=== PATIENT | male | born 1995 | race Caucasian/White ===

== ENCOUNTER 2017-09-11 09:16 | Emergency (ER) ==
[2017-09-11 09:20] VITALS: BP 125/89; TEMP 98.2; BMI 20.6
--- NOTE | 2017-09-11 09:44 | ED.PDOC ---
General ED Provider: Dr. RAMONA FIELDS Chief Complaint: Sore Throat Stated Complaint: Sore throat and temperature elevation. Mother accompanies her son and states he's been sick for several days with elevated temperature. States has been giving him antipyretics with some improvement but she noted white patches on his tonsils which were reddened. In addition has had a productive cough of greenish colored sputum. Has given him mucinex. Time Seen by Physician: 09:35 Mode of Arrival: Walk-In Information Source: Patient, Family Exam Limitations: No limitations Referred to ED by: Other (his mother ) Nursing and Triage Documentation Reviewed and Agree: Yes Reviewed sepsis parameters & appropriate labs ordered?: Yes System Inflammatory Response Syndrome: Not Applicable Sepsis Protocol: For patient's 13 years and over: Temp is 96.8 and below OR 101 and greater Pulse >90 BPM Resp >20/minute Acutely Altered Mental Status Are patient's symptoms suggestive of a new infection, such as: -Pneumonia -Skin, Soft Tissue -Endocarditis -UTI -Bone, Joint Infection -Implantable Device -Acute Abdominal Infection -Wound Infection -Meningitis -Blood Stream Catheter Infection -Unknown System Inflammatory Response Syndrome: Not Applicable Review of Systems - Review Of Systems Constitutional: Reports: Fever, Weakness, Loss of appetite, Other (aching) Eyes: Reports: No symptoms Ears, Nose, Mouth, Throat: Reports: No symptoms, Throat pain, Throat swelling Respiratory: Reports: Cough, Other (productive of green sputum) Cardiac: Reports: No symptoms GI: Reports: No symptoms : Reports: No symptoms Musculoskeletal: Reports: No symptoms Skin: Reports: No symptoms Neurological: Reports: No symptoms Endocrine: Reports: No symptoms Hematologic/Lymphatic: Reports: No symptoms All Other Systems: Reviewed and Negative Past Medical History - Past Medical History Previously Healthy: Yes Endocrine: Reports: None Cardiovascular: Reports: None Respiratory: Reports: Other (previous strep throat) Hematological: Reports: None Gastrointestinal: Reports: None Genitourinary: Reports: None Neuro/Psych: Reports: None Musculoskeletal: Reports: None Cancer: Reports: None - Surgical History General Surgical History: Reports: None - Family History Family History: Reports: None - Social History Smoking Status: Current every day smoker, Heavy tobacco smoker Hx Substance Use: No Alcohol Screening: Occasionally - Immunizations Tetanus Shot up to Date: Yes Physical Exam - Physical Exam Appearance: Well-appearing, No pain distress, Well-nourished Ill-appearing: Mild Pain Distress: None Eyes: VIOLETA, EOMI, Conjunctiva clear ENT: Ears normal, Nose normal, Erythema, Exudate (tonisls reddened) Respiratory: Airway patent, Breath sounds clear, Breath sounds equal, Respirations nonlabored Cardiovascular: RRR, Pulses normal, No rub, No murmur GI/: Soft, Nontender, No masses, Bowel sounds normal, No Organomegaly Musculoskeletal: Normal strength, ROM intact, No edema, No calf tenderness Skin: Warm, Dry, Normal color Neurological: Sensation intact, Motor intact, Reflexes intact, Cranial nerves intact, Alert, Oriented Psychiatric: Affect appropriate, Mood appropriate Re-Evaluation - Re-Evaluation Time of Re-Evaluation: 11:40 Status: Improved Vital Signs Stable: Yes Appearance: NAD Lungs: Clear Skin: Warm and Dry Neuro: Alert and Oriented X3 CV: RRR Additional Comments: Explained results of testing to patient and mother Critical Care Note - Critical Care Note Total Time (mins): 60 Course - Course Hematology/Chemistry: 09/11/17 10:55 Vital Signs: Temp Pulse Resp BP Pulse Ox 09/11/17 09:16 98.2 F 79 18 125/89 98 Departure - Departure Time of Disposition: 11:45 Disposition: HOME SELF-CARE Discharge Problem: Acute tonsillitis Condition: Good Pt referred to PMD for follow-up: Yes (1 week) IPMP verified?: No Additional Instructions: Take meds as directed Take Tylenol or advil for temperature above 101 def F or for pain F/U PCP in 7-10 days Additional test results prob available by then Prescriptions: Azithromycin [Zithromax] 250 mg PO DAILY #6 tablet Allergies/Adverse Reactions: Allergies No Known Allergies Allergy (Verified 09/11/17 09:20) Home Medications: Ambulatory Orders Azithromycin [Zithromax] 250 mg PO DAILY #6 tablet 09/11/17
== END 2017-09-11 11:58 | disposition home or self-care (01) ==
LOC: ED 09:16
DX: J03.90 Acute tonsillitis, unspecified (principal)
CPT/HCPCS: 36415; 85025; 86308; 87070; 87502; 87651; 99283

== ENCOUNTER 2019-01-19 13:05 | Emergency (ER) ==
[2019-01-19 13:09] VITALS: BP 160/94; TEMP 98; BMI 24.0
[2019-01-19] MEDS ORDERED: DUONEB NEB STA (13:22)
[2019-01-19] MEDS ORDERED: SODIUM CHLORIDE 1,000 ML IV STA (13:22)
[2019-01-19] MEDS ORDERED: ZOFRAN 4 MG/2 ML IVP STA (13:22)
--- NOTE | 2019-01-19 14:33 | ED.PDOC ---
General ED Provider: Dr. RAMONA BRADEN-ER Chief Complaint: Shortness of Air Stated Complaint: humberto been sob and i stop vaping Time Seen by Physician: 13:10 Mode of Arrival: Walk-In Information Source: Patient Exam Limitations: No limitations Nursing and Triage Documentation Reviewed and Agree: Yes Does patient meet sepsis criteria?: No System Inflammatory Response Syndrome: Not Applicable Sepsis Protocol: For patient's 13 years and over: Temp is 96.8 and below OR 101 and greater Pulse >90 BPM Resp >20/minute Acutely Altered Mental Status Are patient's symptoms suggestive of a new infection, such as: -Pneumonia -Skin, Soft Tissue -Endocarditis -UTI -Bone, Joint Infection -Implantable Device -Acute Abdominal Infection -Wound Infection -Meningitis -Blood Stream Catheter Infection -Unknown Respiratory Complaint Exam - Respiratory Complaint/Exam Onset/Duration: several days Symptoms Are: Still present Initial Severity: Mild Current Severity: Mild Location: Chest Character: Reports: Non-productive cough Alleviating: Reports: Spontaneous resolution Associated Signs and Symptoms: Denies: Rapid breathing, Dyspnea, Fever, Chills, Chest pain, Pleuritic chest pain, Wheezing, Hemoptysis, Dizziness, Calf pain, Calf swelling, Edema, URI, Nasal congestion, Hoarseness, Sinus discomfort, Vomiting, Sore throat, Weight loss, Decreased oral intake, Increased thirst, Increased appetite, Increased urination Home Oxygen Use: No Recent Stress Test: No Recent Echo/LV Function: No Current Antibiotic Use: No Current Asthma Medication Use: No Respiratory Distress: None Inadequate Respiratory Effort: No Dysphagia Present: No Stridor Present: No JVD Present: No Accessory Muscle Use: No Retractions: Not Present Diminished Breath Sounds: No Sinus Tenderness: None Grunting Respirations: No Kussmaul Respirations: No Differential Diagnoses: Chest Wall Pain, Pneumonia, Bronchitis Non-Traumatic Chest Pain Syncope: EKG Performed Review of Systems - Review Of Systems Constitutional: Reports: No symptoms Eyes: Reports: No symptoms Ears, Nose, Mouth, Throat: Reports: No symptoms Respiratory: Reports: Cough, Short of air Cardiac: Reports: No symptoms GI: Reports: No symptoms : Reports: No symptoms Musculoskeletal: Reports: No symptoms Skin: Reports: No symptoms Neurological: Reports: No symptoms Endocrine: Reports: No symptoms Hematologic/Lymphatic: Reports: No symptoms All Other Systems: Reviewed and Negative Past Medical History - Past Medical History Previously Healthy: Yes Endocrine: Reports: None Cardiovascular: Reports: None Respiratory: Reports: Other (previous strep throat) Hematological: Reports: None Gastrointestinal: Reports: None Genitourinary: Reports: None Neuro/Psych: Reports: None Musculoskeletal: Reports: None Cancer: Reports: None - Surgical History General Surgical History: Reports: None - Family History Family History: Reports: None - Social History Smoking Status: Current every day smoker, Vaping Hx Substance Use: No Alcohol Screening: Occasionally Physical Exam - Physical Exam Appearance: Well-appearing, No pain distress, Well-nourished Eyes: VIOLETA, EOMI, Conjunctiva clear ENT: Ears normal, Nose normal, Oropharynx normal Neck: Supple Respiratory: Airway patent, Breath sounds clear, Breath sounds equal, Respirations nonlabored Cardiovascular: RRR, Pulses normal, No rub, No murmur GI/: Soft Musculoskeletal: Normal strength, ROM intact, No edema, No calf tenderness Skin: Warm, Dry, Normal color Neurological: Sensation intact, Motor intact, Reflexes intact, Cranial nerves intact, Alert, Oriented Psychiatric: Affect appropriate, Mood appropriate Interpretation - Radiology Interpretation Radiology Interpretation By: Radiologist Radiology Results: Negative Exam Interpreted: CT Scan - EKG Interpretation Time of EKG #1: 15:53 Rate: Normal Rhythm: Sinus Ectopy: None [place]: NL ST Segment: Normal Interpretation: nsr Critical Care Note - Critical Care Note Total Time (mins): 0 Course - Course Hematology/Chemistry: 01/19/19 13:34 01/19/19 13:34 Orders, Labs, Meds: Lab Review 01/19/19 01/19/19 01/19/19 13:21 13:25 13:34 WBC 10.27 H RBC 5.62 Hgb 15.4 Hct 45.7 MCV 81.3 MCH 27.4 MCHC 33.7 RDW Coeff of Branden 13.1 Plt Count 215 Immature Gran % (Auto) 0.4 Neut % (Auto) 65.3 Lymph % (Auto) 24.0 [place] % (Auto) 9.5 Eos % (Auto) 0.3 Baso % (Auto) 0.5 Immature Gran # (Auto) 0.0 Neut # (Auto) 6.7 Lymph # (Auto) 2.5 [place] # (Auto) 1.0 Eos # (Auto) 0.0 Baso # (Auto) 0.1 ESR 1 Puncture Site Rrad O2 Saturation 99.0 ABG pH 7.563 H* ABG pCO2 21.3 L ABG pO2 137.0 H ABG HCO3 19.2 L ABG Total CO2 20 L ABG Base Excess -3 L Keagan Test + FiO2 % 21.0 Sodium Potassium Chloride Carbon Dioxide Anion Gap BUN Creatinine Estimated GFR (MDRD) BUN/Creatinine Ratio Glucose Calcium Total Bilirubin AST ALT Alkaline Phosphatase Total Creatine Kinase CK-MB (CK-2) CK-MB (CK-2) % Troponin I NT-Pro-B Natriuret Pep Total Protein Albumin Globulin Albumin/Globulin Ratio Urine Color Urine Clarity Urine pH Ur Specific [place] Urine Protein Urine Glucose (UA) Urine Ketones Urine Blood Urine Nitrite Urine Bilirubin Urine Urobilinogen Ur Leukocyte Esterase Influ A Molecular Assay Negative by naat Influ B Molecular Assay Negative by naat 01/19/19 01/19/19 13:34 13:40 WBC RBC Hgb Hct MCV MCH MCHC RDW Coeff of Branden Plt Count Immature Gran % (Auto) Neut % (Auto) Lymph % (Auto) [place] % (Auto) Eos % (Auto) Baso % (Auto) Immature Gran # (Auto) Neut # (Auto) Lymph # (Auto) [place] # (Auto) Eos # (Auto) Baso # (Auto) ESR Puncture Site O2 Saturation ABG pH ABG pCO2 ABG pO2 ABG HCO3 ABG Total CO2 ABG Base Excess [place] Test FiO2 % Sodium 140.5 Potassium 3.66 Chloride 107.3 H Carbon Dioxide 23.4 Anion Gap 13.46 BUN 10.1 Creatinine 1.00 Estimated GFR (MDRD) 93.00 BUN/Creatinine Ratio 10.10 Glucose 104.7 Calcium 10.09 Total Bilirubin 0.82 AST 26.6 ALT 21.7 Alkaline Phosphatase 70.0 Total Creatine Kinase 151.8 CK-MB (CK-2) 0.800 CK-MB (CK-2) % 0.5200 Troponin I < 0.012 NT-Pro-B Natriuret Pep 52.300 Total Protein 8.54 H Albumin 5.32 H Globulin 3.22 Albumin/Globulin Ratio 1.65 Urine Color Yellow Urine Clarity Clear Urine pH 7.0 Ur Specific [place] 1.010 Urine Protein Negative Urine Glucose (UA) Negative Urine Ketones Negative Urine Blood Negative Urine Nitrite Negative Urine Bilirubin Negative Urine Urobilinogen 0.2 Ur Leukocyte Esterase Negative Influ A Molecular Assay Influ B Molecular Assay Orders Category Date Time Status ABG DRAW REQUEST Stat CARDIO 01/19/19 13:21 Completed EKG-(ED ONLY) Stat CARDIO 01/19/19 13:21 Completed NEBULIZER TREATMENT Stat CARDIO 01/19/19 13:22 Completed NPO REMINDER: IMAGING ONCE CARE 01/19/19 13:23 Active ED INSTANT PRINT OPERATOR APPLIED .ONCE EMERGENCY 01/19/19 13:21 Active ED IV/MEDIPORT/POWERPORT .ONCE EMERGENCY 01/19/19 13:21 Active ABG Stat LAB 01/19/19 13:21 Completed CBC W/ AUTO DIFF Stat LAB 01/19/19 13:34 Completed COMPREHENSIVE METABOLIC PANEL Stat LAB 01/19/19 13:34 Completed CREATINE KINASE Stat LAB 01/19/19 13:34 Completed ESR Stat LAB 01/19/19 13:34 Completed FLU A/B MOLECULAR Stat LAB 01/19/19 13:25 Completed NT-PROBNP Stat LAB 01/19/19 13:34 Completed TROPONIN I Stat LAB 01/19/19 13:34 Completed URINALYSIS C & S IF INDICATED Stat LAB 01/19/19 13:40 Completed 0.9 % Sodium Chloride [Saline Flush] MEDS 01/19/19 13:21 Active 1 syr IVF PRN PRN Ipratropium/Albuterol Neb [Duoneb] MEDS 01/19/19 13:22 Discontinued 1 vial NEB ONCE STA Ondansetron HCl/Pf [Zofran 4 mg/2 ml] MEDS 01/19/19 13:22 Discontinued 4 mg IVP ONCE STA Sodium Chloride 0.9% [Sodium Chloride] 1,000 ml MEDS 01/19/19 13:22 Active IV 100 mls/hr CT ABDOMEN/PELVIS WO CONTRAST Stat RADS 01/19/19 13:[address] CHEST PE PROTOCOL Stat RADS 01/19/19 13:22 Completed Medications Generic Name Dose Route Start Last Admin Trade Name Freq PRN Reason Stop Dose Admin Sodium Chloride 1,000 mls @ 100 mls/hr 01/19/19 13:22 01/19/19 13:40 Sodium Chloride IV 01/19/19 23:21 100 mls/hr .Q10H STA Administration Sodium Chloride 1 syr 01/19/19 13:21 01/19/19 13:40 Saline Flush IVF 1 syr PRN PRN Administration To flush IV Discontinued Medications Generic Name Dose Route Start Last Admin Trade Name Freq PRN Reason Stop Dose Admin Albuterol/Ipratropium 1 vial 01/19/19 13:22 01/19/19 14:01 Duoneb NEB 01/19/19 13:23 1 vial ONCE STA Administration Ondansetron HCl 4 mg 01/19/19 13:22 01/19/19 13:41 Zofran 4 Mg/2 Ml IVP 01/19/19 13:23 4 mg ONCE STA Administration Vital Signs: Temp Pulse Resp BP Pulse Ox 01/19/19 13:06 98.0 F 77 18 160/94 H 98 Departure - Departure Time of Disposition: 15:53 Disposition: HOME SELF-CARE Discharge Problem: Anxiety Instructions: Anxiety (ED) Condition: Good Pt referred to PMD for follow-up: Yes IPMP verified?: No Additional Instructions: f/u wiht pcp Allergies/Adverse Reactions: Allergies No Known Allergies Allergy (Verified 01/19/19 13:09) Home Medications: Ambulatory Orders 1 [No Reported Medications] 01/19/19 Disposition Discussed With: Patient, Family
--- NOTE | 2019-01-19 15:46 | CT ---
EXAM: CT Abdomen Pelvis Without contrast see HISTORY: Nausea and diarrhea COMPARISON: None TECHNIQUE: CT Abdomen Pelvis performed Without intravenous contrast. Coronal and sagital images obta ined. FINDINGS: Clear lung bases. Normal heart size. The liver, gallbladder, pancreas, spleen, adrenals and kidneys are unremarkable. No bowel obstruction or abnormal bowel wall thickening. Normal appendix. No adenopathy. Normal diameter aorta. No abnormal fluid collection, free fluid or free air. No acute osseous abnor mality. IMPRESSION: No acute intra-abdominal findings. The
--- NOTE | 2019-01-19 15:51 | CT ---
EXAM: CTA chest with contrast HISTORY: Dyspnea TECHNIQUE: Multi-slice transaxial helical PE protocol. Multiplanar MIP and 3D volume rendered image s are provided. COMPARISON: None FINDINGS: There are no main, lobar, or segmental pulmonary arterial filling defects. Normal heart size. No per icardial effusion. Normal diameter aorta. No mediastinal, hilar or axillary lymph nodes. Clear lung s. No pneumothorax or pleural effusion. No suspicious pulmonary nodule. No acute findings in the u pper abdomen. No acute osseous abnormality. IMPRESSION: No pulmonary embolus or acute chest findings.
== END 2019-01-19 16:11 | disposition home or self-care (01) ==
LOC: ED 13:05
DX: R06.02 Shortness of breath (principal); F41.9 Anxiety disorder, unspecified; Z72.0 Tobacco use
CPT/HCPCS: 36415; 80053; 81001; 82550; 82553; 82803; 83880; 84484; 85025; 85651; 87502; 93005; 93010; 94640; 96361; 96374; 99283